=== PATIENT | female | born 1960 | race Caucasian/White ===

== ENCOUNTER → 2023-12-03 | Outpatient (CLI) | payer SELFPAY, OTHER ==
--- NOTE | 2023-12-03 08:58 | BI_ITS ---
MAMMOGRAPHY - BILATERAL SCREENING REASON FOR EXAM: Female, 63 years old. Routine annual screening examination. PERTINENT HISTORY: Non-contributory. TECHNIQUE: Digital bilateral breast jeannette (3D mammographic acquisition) in the CC and MLO projections. 2-D mediolateral oblique (MLO) and craniocaudad (CC) views of both breasts were obtained. CAD: Full Field Digital Mammography with Computer Added Detection was performed. COMPARISON: Comparison is made with prior study dated March 18, 2018. FINDINGS: Breast Composition: The breasts are almost entirely fatty. There are 2, adjacent 4 mm well-defined nodules in the anterior medial retroareolar region of the right breast. These most likely represent small intramammary lymph nodes. These are unchanged. Stable fat-containing bilateral axillary lymph nodes. No other significant abnormalities are identified. There has been no significant change since the prior study. BI/SCRN MAMM (CAD)W/JEANNETTE BILAT IMPRESSION: Stable bilateral screening mammogram. Yearly follow-up mammogram recommended. (A) ASSESSMENT CATEGORY: BIRADS Category 2: Benign. A letter regarding these results will be sent to the patient by the facility within 30 days. Approximately 10% of breast cancers are not detected by mammography. A normal mammogram should not delay biopsy of a clinically suspicious abnormality. [id number] Electronically Signed: Arturo Lyons MD at 10:35 EDT ,
== END | disposition home or self-care (01) ==
LOC: OPBI 08:41
PROVIDERS: PCP Family Medicine; Visit Provider Advanced Practice Midwife
DX: Z12.31 Encounter for screening mammogram for malignant neoplasm of breast (principal)
CPT/HCPCS: 77063; 77067